=== PATIENT | male | born 1930 | race Caucasian/White ===

== ENCOUNTER 2019-09-29 16:22 | Inpatient (IN) | payer MEDICARE, MEDICAID ==
[~2019-09-29] VITALS: Ht 157.5 cm; Wt 79.4 kg
[2019-09-29 16:59] VITALS: BP 120/55
[2019-09-29] MEDS ORDERED: IV NS 1000 ML 1,000 ML IV PRN (18:52)
[2019-09-29] MEDS ORDERED: Z GUARD REMEDY PASTE 57 GM TUBE TOP PRN (19:00)
[2019-09-29] MEDS ORDERED: CEFTRIAXONE 2 G in IV DEXTROSE 5% 100 ML IV SCH (19:00)
[2019-09-29] MEDS ORDERED: MAGNESIUM HYDROXIDE 30 ML LIQUID UDC PO PRN (19:00)
[2019-09-29] MEDS ORDERED: ONDANSETRON 4 MG/2 ML VIAL IV PRN (19:00)
[2019-09-29] MEDS ORDERED: ZOLPIDEM 5 MG TABLET PO PRN (19:00)
[2019-09-29] MEDS ORDERED: ACETAMINOPHEN 325 MG TABLET PO PRN (19:00)
[2019-09-29] MEDS ORDERED: HYDROCODONE/APAP 5-325MG TABLET PO PRN (19:00)
[2019-09-29 20:00] VITALS: BP 126/54
[2019-09-29] MEDS ORDERED: VANCOMYCIN IV 1,000 MG in IV DEXTROSE 5% 250 ML IV ONE (21:00)
[2019-09-29] MEDS ORDERED: ATORVASTATIN 40 MG TABLET PO SCH (21:00)
[2019-09-29] MEDS: CEFTRIAXONE 1 G in IV DEXTROSE 5% 50 ML IV SCH (21:28)
[2019-09-29 23:11] LABS: BASOPHILS # (AUTO) 0.1 K/uL (0.0-8.0); BASOPHILS % (AUTO) 0.6 % (0.0-2.0); EOSINOPHILS # (AUTO) 0.2 K/uL (0.0-0.7); EOSINOPHILS % (AUTO) 1.3 % (0.0-7.0); HEMATOCRIT 38.4 % (36.7-47.1); HEMOGLOBIN 12.3 g/dL (12.5-16.3); LYMPHOCYTES # (AUTO) 1.3 K/uL (20.0-40.0); LYMPHOCYTES % (AUTO) 9.1 % (20.5-51.5); MEAN CORPUSCULAR HEMOGLOBIN 29.5 uug (23.8-33.4); MEAN CORPUSCULAR HGB CONC 32 g/dL (32.5-36.3); MEAN CORPUSCULAR VOLUME 91.7 fL (73.0-96.2); MONOCYTES # (AUTO) 0.8 K/uL (2.0-10.0); MONOCYTES % (AUTO) 5.2 % (0.0-11.0); NEUTROPHILS # (AUTO) 12.1 K/uL (1.8-8.9); NEUTROPHILS % (AUTO) 83.8 % (38.5-71.5); PLATELET COUNT (AUTO) 289 K/uL (152-348); RED BLOOD CELL COUNT(AUTO) 4.19 MIL/uL (4.06-5.63); WHITE BLOOD COUNT (AUTO) 14.5 K/uL (3.6-10.2)
[2019-09-29 23:22] LABS: ALANINE AMINOTRANSFERASE 11 U/L (16-63); ALKALINE PHOSPHATASE 121 U/L (50-136); ASPARTATE AMINOTRANSFERASE 25 U/L (15-37); BILIRUBIN,TOTAL 0.3 mg/dL (0.2-1.0); CARBON DIOXIDE 25 mmol/L (21-32); CHLORIDE 98 mmol/L (98-107); GLUCOSE 145 mg/dL (74-106); MAGNESIUM 2.5 mg/dL (1.8-2.4); POTASSIUM 5.4 mmol/L (3.5-5.1); TOTAL PROTEIN, SERUM 6.9 g/dL (6.4-8.2)
[2019-09-29 23:24] LABS: CREATININE 7.8 mg/dL (0.6-1.3); UREA NITROGEN, BLOOD 99 mg/dL (7-18)
[2019-09-29 23:53] VITALS: BP 121/52
[2019-09-30 00:02] VITALS: BP 94/40
[2019-09-30 04:00] VITALS: BP 137/58
--- NOTE | 2019-09-30 06:39 | NUR ---
Pt slept well through the night with no issues. All admission process continued from AM nurse and finished. All meds reconciled by MD. Pt kept on O2 2LPM, normal. V pacing on tele, rate at 65 - 75. No signs of active distress. Awaiting for dialysis orders, but family is aware that patient is stable at this time and MD will make his rounds today to assess patient. Had 2 soft BM during shift. Noted with anuria. IV fluids running as ordered, but patient accidentally pulled out IV just now. Will attempt to start a new one. Will endorse accordingly to AM nurse.
[2019-09-30] MEDS: PANTOPRAZOLE SODIUM 40 MG TABLET.DR PO SCH (06:59)
[2019-09-30 07:11] LABS: BASOPHILS # (AUTO) 0.1 K/uL (0.0-8.0); EOSINOPHILS # (AUTO) 0.3 K/uL (0.0-0.7); EOSINOPHILS % (AUTO) 1.9 % (0.0-7.0); HEMATOCRIT 36.9 % (36.7-47.1); LYMPHOCYTES # (AUTO) 1.2 K/uL (20.0-40.0); LYMPHOCYTES % (AUTO) 8.7 % (20.5-51.5); MEAN CORPUSCULAR HEMOGLOBIN 29.8 uug (23.8-33.4); MEAN CORPUSCULAR HGB CONC 33 g/dL (32.5-36.3); MEAN CORPUSCULAR VOLUME 91.4 fL (73.0-96.2); MONOCYTES # (AUTO) 0.7 K/uL (2.0-10.0); MONOCYTES % (AUTO) 5.3 % (0.0-11.0); NEUTROPHILS # (AUTO) 11.1 K/uL (1.8-8.9); NEUTROPHILS % (AUTO) 83.1 % (38.5-71.5); PLATELET COUNT (AUTO) 294 K/uL (152-348); RED BLOOD CELL COUNT(AUTO) 4.04 MIL/uL (4.06-5.63); WHITE BLOOD COUNT (AUTO) 13.3 K/uL (3.6-10.2)
--- NOTE | 2019-09-30 07:15 | NUR ---
RECEIVED PATIENT IN BED AWAKE VERBALLY RESPOND BUT HE IS MIXED AND DOES NOT SEEM TO KNOW WHAT HE WANTS FOR EXAMPLE WANTS HEAD UP AND SOON I PUT IT UP WANTS IT DOWN AGAIN ON O2 AT 2L/M WITH NO SHORTNESS OF BREATH AT THIS TIME HL INTACT TO HIS RIGHT HAND AZAR CATH IS GIL\TACT TO HIS RIGHT UPPER CHEST MADE COMFORTABLE WILL CONTINUE TO OBSERVE AND PROVIDE SAFE AND THERAPEUTIC ENVIRONMENT AT ALL TIMES
[2019-09-30 07:31] LABS: CARBON DIOXIDE 28 mmol/L (21-32); CHLORIDE 95 mmol/L (98-107); CHOLESTEROL 88 mg/dL (<200); GLUCOSE 86 mg/dL (74-106); HDL CHOLESTEROL 40 mg/dL (40-60); MAGNESIUM 2.7 mg/dL (1.8-2.4); PHOSPHOROUS 5.1 mg/dL (2.5-4.9); POTASSIUM 5.4 mmol/L (3.5-5.1); TRIGLYCERIDES 66 MG/DL (30-150)
[2019-09-30 07:50] LABS: UREA NITROGEN, BLOOD 110 mg/dL (7-18)
[2019-09-30 07:51] LABS: CREATININE 8.5 mg/dL (0.6-1.3)
[2019-09-30 08:20] LABS: THYROID STIMULATING HORMONE 0.791 mIU/mL (0.358-3.740)
[2019-09-30] MEDS: MEMANTINE HCL 10 MG TABLET PO SCH ×2 (08:50→20:44)
[2019-09-30] MEDS: CARVEDILOL 25 MG TABLET PO SCH (08:50)
[2019-09-30] MEDS: ASPIRIN 81 MG TAB.CHEW PO SCH (08:50)
[2019-09-30] MEDS: BICALUTAMIDE 50 MG TABLET PO SCH (08:55)
[2019-09-30] MEDS ORDERED: CARVEDILOL 12.5 MG TABLET PO SCH (09:00)
[2019-09-30 11:11] VITALS: BP 93/46
--- NOTE | 2019-09-30 12:45 | NUR ---
DIALYSIS COMPLETED ORDERED AND 800 ML REPORTED REMOVED.PATIENT TOLERATED PROCEDURE WELL
--- NOTE | 2019-09-30 12:52 | NUR ---
PATIENT SEEN AND EXAMINED BY DR MEJÍA WITH NEW ORDERS AND NOTED.
[2019-09-30 15:20] VITALS: BP 114/45
[2019-09-30 16:15] LABS: ABG BASE EXCESS 2.1 mmol/L; ABG HCO3 30.1 mmol/L; ABG PCO2 63.6 mmHg (35.0-45.0); ABG PH 7.293 (7.350-7.450); ABG PO2 73.3 mmHg (75.0-100.0); ABG SITE LEFT RADIAL; ABG TOTAL HEMOGLOBIN 12.3 G/dL (13.5-18.0); COHb 1.6 % (0.5-1.5); O2Hb 91.3 % (94.0-97.0); VENT MODE Nasal Cannula
--- NOTE | 2019-09-30 17:03 | NUR ---
RECEIVED ABNORMAL ABG RESULTS FROM THE RESPIRATORY CALLED DR OBANDO OFFICE TO RELAY THEM TO HIM SPOKE WITH MAN[facility] ANSWERING SERVICE STATED NOT IS NOT AVAILABLE AT THE MOMENT WILL PAGE HIM TO CALL ME BACK PATIENT REMAINS ON O2 WITH NO SHORTNESS OF BREATH AT THIS TIME.ALL NEEDS ANTICIPATED AND SATISFIED.
--- NOTE | 2019-09-30 17:34 | NUR ---
DR MEJÍA RETURNED CALL AND STATED TO TITRATE O2 TO MAINTAIN SATURATION AT 88-92 PERCENT AND NOTED.HE IS ON O2 AT 2.5 LITERS SO O2 SET AT 1.5 AT THIS TIME AND WILL RECHECK SAT.
--- NOTE | 2019-09-30 17:35 | NUR ---
PATIENT IS AWAKE ALERT NO DISTRESS AT THIS TIME COOPERATIVE EATING DINNER BEING SPOON FED BY THE ELECTION JUDGE.
[2019-09-30 20:01] VITALS: BP 114/45
[2019-09-30] MEDS: CEFTRIAXONE 1 G in IV DEXTROSE 5% 50 ML IV SCH (20:44)
[2019-09-30] MEDS: Z GUARD REMEDY PASTE 57 GM TUBE TOP SCH (21:11)
[2019-10-01 06:21] LABS: BASOPHILS # (AUTO) 0.1 K/uL (0.0-8.0); BASOPHILS % (AUTO) 0.9 % (0.0-2.0); EOSINOPHILS # (AUTO) 0.1 K/uL (0.0-0.7); EOSINOPHILS % (AUTO) 1.2 % (0.0-7.0); HEMATOCRIT 35.1 % (36.7-47.1); HEMOGLOBIN 11.2 g/dL (12.5-16.3); LYMPHOCYTES # (AUTO) 0.9 K/uL (20.0-40.0); LYMPHOCYTES % (AUTO) 7.9 % (20.5-51.5); MEAN CORPUSCULAR HEMOGLOBIN 29.4 uug (23.8-33.4); MEAN CORPUSCULAR HGB CONC 32 g/dL (32.5-36.3); MEAN CORPUSCULAR VOLUME 92.5 fL (73.0-96.2); MONOCYTES # (AUTO) 0.7 K/uL (2.0-10.0); MONOCYTES % (AUTO) 5.9 % (0.0-11.0); NEUTROPHILS # (AUTO) 9.5 K/uL (1.8-8.9); NEUTROPHILS % (AUTO) 84.1 % (38.5-71.5); PLATELET COUNT (AUTO) 296 K/uL (152-348); RED BLOOD CELL COUNT(AUTO) 3.79 MIL/uL (4.06-5.63); WHITE BLOOD COUNT (AUTO) 11.3 K/uL (3.6-10.2)
[2019-10-01] MEDS: PANTOPRAZOLE SODIUM 40 MG TABLET.DR PO SCH (06:26)
[2019-10-01 06:54] LABS: ALANINE AMINOTRANSFERASE 14 U/L (16-63); ALKALINE PHOSPHATASE 120 U/L (50-136); ASPARTATE AMINOTRANSFERASE 13 U/L (15-37); BILIRUBIN,TOTAL 0.3 mg/dL (0.2-1.0); CARBON DIOXIDE 32 mmol/L (21-32); CHLORIDE 104 mmol/L (98-107); CREATININE 6.3 mg/dL (0.6-1.3); GLUCOSE 83 mg/dL (74-106); MAGNESIUM 2.4 mg/dL (1.8-2.4); PHOSPHOROUS 3.7 mg/dL (2.5-4.9); POTASSIUM 4.7 mmol/L (3.5-5.1); TOTAL PROTEIN, SERUM 6.3 g/dL (6.4-8.2); UREA NITROGEN, BLOOD 65 mg/dL (7-18)
[2019-10-01 07:02] VITALS: BP 116/52
--- NOTE | 2019-10-01 07:30 | NUR ---
RECEIVED PATIENT IN BED, ASLEEP, EASY TO AWAKE, AOX2. COMPLAINS OF MILD SOB AND ON 1L NC SATURATES AT 94%. WILL TITRATE DOWN ORDERED. DENIES PAIN AT THIS TIME. RIGHT HAND IV INTACT AND HL. SAFETY AND FALL PREVENTION IN PLACE. CALL LIGHT IN REACH, BED LOW AND LOCKED. WILL CONTINUE TO MONITOR.
[2019-10-01] MEDS: Z GUARD REMEDY PASTE 57 GM TUBE TOP SCH ×2 (09:00→20:40)
[2019-10-01] MEDS: CARVEDILOL 25 MG TABLET PO SCH (09:00)
[2019-10-01] MEDS: BICALUTAMIDE 50 MG TABLET PO SCH (09:00)
[2019-10-01] MEDS: MEMANTINE HCL 10 MG TABLET PO SCH ×2 (10:12→20:40)
[2019-10-01] MEDS: ASPIRIN 81 MG TAB.CHEW PO SCH (10:12)
[2019-10-01 11:42] VITALS: BP 117/42
[2019-10-01 16:02] VITALS: BP 134/56
[2019-10-01] MEDS: CARVEDILOL 6.25 MG TABLET PO SCH (17:41)
[2019-10-01] MEDS: NEPRO (VANILLA) 237 ML CAN PO SCH (17:42)
--- NOTE | 2019-10-01 18:25 | NUR ---
PATIENT AOX2. DENIES PAIN OR SOB THROUGHOUT THE SHIFT. O2 TITRATED DOWN TO 0.5L NC. SATURATING AT 92% ORDERED. PATIENT HAD DIALISIS TODAY, 500CC OUT. TURNING AND REPOSITIONING PATIENT Q2HRS AND OFFLOADING EXTREMITIES. SAFETY AND FALL PREVENTION IN PLACE. CALL LIGHT IN REACH, BED IN LOW AND LOCKED POSITION. WILL REPORT TO ONCOMING NURSE.
--- NOTE | 2019-10-01 19:30 | NUR ---
Received patient resting in bed, no signs of acute distress noted. A/Ox2. No complaints of pain or SOB. Patient is 95% on 0.5L NC. Heplock on the right hand is intact and patent. Safety measures initiated. Bed is low and locked, call light within reach, bed alarm on. Will continue to monitor.
[2019-10-01] MEDS: CEFTRIAXONE 1 G in IV DEXTROSE 5% 50 ML IV SCH (20:13)
[2019-10-01] MEDS ORDERED: ATORVASTATIN 40 MG TABLET PO SCH (21:00)
[2019-10-01 21:13] VITALS: BP 142/70
[2019-10-02 00:58] VITALS: BP 121/47
[2019-10-02 04:51] VITALS: BP 135/60
[2019-10-02] MEDS: PANTOPRAZOLE SODIUM 40 MG TABLET.DR PO SCH (06:26)
[2019-10-02 06:41] LABS: BASOPHILS # (AUTO) 0.1 K/uL (0.0-8.0); BASOPHILS % (AUTO) 0.7 % (0.0-2.0); EOSINOPHILS # (AUTO) 0.2 K/uL (0.0-0.7); EOSINOPHILS % (AUTO) 1.4 % (0.0-7.0); HEMATOCRIT 36.7 % (36.7-47.1); HEMOGLOBIN 11.8 g/dL (12.5-16.3); LYMPHOCYTES # (AUTO) 1.1 K/uL (20.0-40.0); LYMPHOCYTES % (AUTO) 9.5 % (20.5-51.5); MEAN CORPUSCULAR HEMOGLOBIN 29.8 uug (23.8-33.4); MEAN CORPUSCULAR HGB CONC 32 g/dL (32.5-36.3); MEAN CORPUSCULAR VOLUME 92.9 fL (73.0-96.2); MONOCYTES # (AUTO) 0.9 K/uL (2.0-10.0); MONOCYTES % (AUTO) 7.2 % (0.0-11.0); NEUTROPHILS # (AUTO) 9.6 K/uL (1.8-8.9); NEUTROPHILS % (AUTO) 81.2 % (38.5-71.5); PLATELET COUNT (AUTO) 258 K/uL (152-348); RED BLOOD CELL COUNT(AUTO) 3.95 MIL/uL (4.06-5.63); WHITE BLOOD COUNT (AUTO) 11.8 K/uL (3.6-10.2)
[2019-10-02 06:50] LABS: CARBON DIOXIDE 30 mmol/L (21-32); CHLORIDE 106 mmol/L (98-107); CREATININE 5.1 mg/dL (0.6-1.3); GLUCOSE 102 mg/dL (74-106); MAGNESIUM 2.4 mg/dL (1.8-2.4); PHOSPHOROUS 2.8 mg/dL (2.5-4.9); POTASSIUM 5.1 mmol/L (3.5-5.1); UREA NITROGEN, BLOOD 45 mg/dL (7-18)
--- NOTE | 2019-10-02 07:30 | NUR ---
Sleeping, comfortable. O2 at 0.5L/NC
[2019-10-02] MEDS ORDERED: CARVEDILOL 6.25 MG TABLET PO SCH (09:00)
[2019-10-02] MEDS ORDERED: CARVEDILOL 25 MG TABLET PO SCH (09:00)
[2019-10-02 09:07] LABS: HEPATITIS B SURFACE AB Reactive (.); HEPATITIS B SURFACE AG Negative (Negative)
[2019-10-02] MEDS: MEMANTINE HCL 10 MG TABLET PO SCH ×2 (09:14→20:20)
[2019-10-02] MEDS: ASPIRIN 81 MG TAB.CHEW PO SCH (09:14)
[2019-10-02] MEDS: BICALUTAMIDE 50 MG TABLET PO SCH (09:16)
[2019-10-02] MEDS: CARVEDILOL 6.25 MG TABLET PO SCH ×2 (09:17→18:00)
[2019-10-02] MEDS: Z GUARD REMEDY PASTE 57 GM TUBE TOP SCH ×2 (09:18→21:47)
[2019-10-02] MEDS: NEPRO (VANILLA) 237 ML CAN PO SCH ×3 (09:18→18:01)
--- NOTE | 2019-10-02 10:00 | NUR ---
Assisted out of bed by PT, not tolerated, SOB on exertion noted.
[2019-10-02] MEDS: METRONIDAZOLE 500 MG/NS 100ML 500 MG in PREMIXED 1 EACH IV SCH ×2 (10:34→21:42)
--- NOTE | 2019-10-02 11:00 | NUR ---
Attempts to get out of bed, disrobing. Repositioned on bed comfortably
[2019-10-02 11:44] VITALS: BP 120/54
--- NOTE | 2019-10-02 12:00 | NUR ---
Wean off O2; RA O2 sat 94%
[2019-10-02 13:01] LABS: ABG BASE EXCESS 2.1 mmol/L; ABG HCO3 28.8 mmol/L; ABG PCO2 54.1 mmHg (35.0-45.0); ABG PH 7.344 (7.350-7.450); ABG SITE RIGHT RADIAL; ABG TOTAL HEMOGLOBIN 12.4 G/dL (13.5-18.0); COHb 1.7 % (0.5-1.5); MetHb 0.1 % (0.0-1.5); VENT MODE Nasal Cannula
--- NOTE | 2019-10-02 14:00 | NUR ---
Disrobing, Noted BM. Incontinence care done. Repositioned in bed comfortably
[2019-10-02 16:14] VITALS: BP 138/68
--- NOTE | 2019-10-02 17:55 | NUR ---
Hemodialysis finished with 1L output. Dinner served
--- NOTE | 2019-10-02 19:30 | NUR ---
Received patient resting in bed, no signs of acute distress noted. No complaints of pain, patient now on room air saturating at 94-95% vitals WNL. Heplock on the right hand is intact and patent. Safety measures initiated. Bed is low and locked, call light within reach, bed alarm on. Will continue to monitor.
[2019-10-02 20:05] VITALS: BP 127/51
[2019-10-02] MEDS: CEFTRIAXONE 1 G in IV DEXTROSE 5% 50 ML IV SCH (20:20)
[2019-10-02] MEDS: ATORVASTATIN 10 MG TABLET PO SCH (20:20)
[2019-10-02] MEDS: ALBUTEROL SULFATE 1.25 MG/3 ML NEBU NEB PRN (21:21)
--- NOTE | 2019-10-02 22:59 | NUR ---
Family at bedside able to translate for patient, patient stated he felt a little short of breath. Was 95% on room air, suggested breathing treatment. Patient stated he feels a little better. Will continue to monitor.
[2019-10-03] VITALS: BP 119/41
[2019-10-03 04:15] VITALS: BP 125/42
[2019-10-03] MEDS: PANTOPRAZOLE SODIUM 40 MG TABLET.DR PO SCH (06:24)
[2019-10-03 06:36] LABS: CARBON DIOXIDE 31 mmol/L (21-32); CHLORIDE 107 mmol/L (98-107); CREATININE 4.5 mg/dL (0.6-1.3); GLUCOSE 108 mg/dL (74-106); MAGNESIUM 2.2 mg/dL (1.8-2.4); PHOSPHOROUS 2.3 mg/dL (2.5-4.9); POTASSIUM 4.9 mmol/L (3.5-5.1); UREA NITROGEN, BLOOD 39 mg/dL (7-18); URIC ACID 3.5 mg/dL (3.5-7.2)
[2019-10-03 06:54] LABS: BASOPHILS # (AUTO) 0.1 K/uL (0.0-8.0); BASOPHILS % (AUTO) 0.7 % (0.0-2.0); EOSINOPHILS # (AUTO) 0.2 K/uL (0.0-0.7); EOSINOPHILS % (AUTO) 1.7 % (0.0-7.0); HEMATOCRIT 35.8 % (36.7-47.1); HEMOGLOBIN 11.5 g/dL (12.5-16.3); LYMPHOCYTES % (AUTO) 9.4 % (20.5-51.5); MEAN CORPUSCULAR HGB CONC 32 g/dL (32.5-36.3); MEAN CORPUSCULAR VOLUME 93.4 fL (73.0-96.2); MONOCYTES # (AUTO) 0.8 K/uL (2.0-10.0); MONOCYTES % (AUTO) 6.9 % (0.0-11.0); NEUTROPHILS % (AUTO) 81.3 % (38.5-71.5); PLATELET COUNT (AUTO) 225 K/uL (152-348); RED BLOOD CELL COUNT(AUTO) 3.84 MIL/uL (4.06-5.63); WHITE BLOOD COUNT (AUTO) 11.1 K/uL (3.6-10.2)
--- NOTE | 2019-10-03 08:00 | NUR ---
RECEIVED PT RESTING IN BED. SON AT BEDSIDE. NO ACUTE DISTRESS OR SOB NOTED. PT ON RA AT THIS TIME WITH SATS OF 94%. PT ON TELE V PACED. PT IS [place] SPEAKING. BED LOCKED AND IN LOW POSITION. WILL CONTINUE TO MONITOR FOR SAFETY AND COMFORT.
[2019-10-03] MEDS: ASPIRIN 81 MG TAB.CHEW PO SCH (09:08)
[2019-10-03] MEDS: CARVEDILOL 6.25 MG TABLET PO SCH ×2 (09:10→18:10)
[2019-10-03] MEDS: BICALUTAMIDE 50 MG TABLET PO SCH (09:11)
[2019-10-03] MEDS: NEPRO (VANILLA) 237 ML CAN PO SCH ×3 (09:13→17:00)
[2019-10-03] MEDS: Z GUARD REMEDY PASTE 57 GM TUBE TOP SCH ×2 (09:14→20:46)
[2019-10-03] MEDS: METRONIDAZOLE 500 MG/NS 100ML 500 MG in PREMIXED 1 EACH IV SCH ×2 (09:53→20:45)
[2019-10-03 12:05] VITALS: BP 106/44
--- NOTE | 2019-10-03 13:05 | NUR ---
PT CONSUMED 25% OF HIS LUNCH. PT IS MED COMPLIANT. NO ACUTE DISTRESS OR SOB NOTED. PT ON TELE MONITORING V PACED. WILL CONTINUE TO MONITOR FOR SAFETY AND COMFORT.
[2019-10-03] MEDS: ALBUTEROL SULFATE 1.25 MG/3 ML NEBU NEB PRN ×2 (14:55→21:40)
[2019-10-03 16:00] VITALS: BP 141/98
[2019-10-03] MEDS ORDERED: NEUTRA PHOS PACKET PO ONE (17:00)
--- NOTE | 2019-10-03 17:30 | NUR ---
@ 1515 [facility] RESPONSE TEAM WAS CALLED. PT APPEARED CYANOTIC AND AGITATED ON SIDEWAYS FLAT POSITION IN BED. SATS OF 83 TO 84%. 160/71, 60, 20. PT PLACED ON SIMPLE MASK AT 6L/M WITH SATS OF 97%. PT PLACED ON HIGH FOWLERS POSITION FOR BETTER AIR EXCURSION. PT HAS TENDENCY TO FIND FLAT POSITION FOR COMFORT. AFTER INTERVENTION PT APPEARS MORE CALMED, WITH GOOD PINK COLOR. BS WITH BETTER AIR EXCURSION. CRX, ABG DONE. DR HARDEN AWARE OF CORRECTIONAL PROGRAM OFFICER INTERVENTION. DR HARDEN CONSULTED WITH PT IN [place] AND NO NEW ORDERS GIVEN. NO ACUTYE DISTRESS OR SOB NOTED AT THIS TIME. WILL CONTINUE TO MONITOR PT FOR SAFETY AND COMFORT.
--- NOTE | 2019-10-03 19:00 | NUR ---
PATIENT ALERT BUT FORGETFUL, NO SOB NO CHEST PAIN. PATIENT TELE MONITOR V PACING. PATIENT ON OXYGEN 1LPM OXYGEN SAT 97%, PATIENT NOTED WITH RESTLESS WHILE IN BED, COMPLAIN OF MILD PAIN, WILL MEDICATE FOR SLIGHT PAIN. CALL LIGHT WITHIN REACH. FREQUENT VISUAL CHECK DONE.
[2019-10-03] MEDS: CEFTRIAXONE 1 G in IV DEXTROSE 5% 50 ML IV SCH (20:08)
[2019-10-03 20:25] VITALS: BP 129/60
[2019-10-03] MEDS: ATORVASTATIN 10 MG TABLET PO SCH (20:45)
--- NOTE | 2019-10-03 21:00 | NUR ---
PATIENT ALERT, AND HAS NO COMPLAIN OF PAIN AT THIS TIME. PATIENT SOB ON EXERTION OR ACTIVITY, KEPT ON 1LPM OXYGEN SAT 97-100%, CONT TO MONITOR.
[2019-10-04] VITALS: BP 122/49
--- NOTE | 2019-10-04 02:50 | NUR ---
PATIENT AWAKE RESTLESS IN BED, TRIES TO CLIMB OUT OF BED, OXYGEN SAT WNL, PATIENT AWAKE COMPLAINING OF UNABLE TO GO BACK TO SLEEP, GIVEN SLEEPING MEDS WITH HELP AFTER 30 MINUTES, CONT TO MONITOR.
[2019-10-04 04:05] VITALS: BP 148/50
[2019-10-04] MEDS: PANTOPRAZOLE SODIUM 40 MG TABLET.DR PO SCH (06:39)
[2019-10-04 06:44] LABS: BASOPHILS # (AUTO) 0.1 K/uL (0.0-8.0); BASOPHILS % (AUTO) 1.2 % (0.0-2.0); EOSINOPHILS # (AUTO) 0.2 K/uL (0.0-0.7); EOSINOPHILS % (AUTO) 2.8 % (0.0-7.0); HEMOGLOBIN 11.4 g/dL (12.5-16.3); LYMPHOCYTES # (AUTO) 0.8 K/uL (20.0-40.0); LYMPHOCYTES % (AUTO) 12.3 % (20.5-51.5); MEAN CORPUSCULAR HEMOGLOBIN 29.8 uug (23.8-33.4); MEAN CORPUSCULAR HGB CONC 32 g/dL (32.5-36.3); MEAN CORPUSCULAR VOLUME 94.4 fL (73.0-96.2); MONOCYTES # (AUTO) 0.3 K/uL (2.0-10.0); MONOCYTES % (AUTO) 3.9 % (0.0-11.0); NEUTROPHILS # (AUTO) 5.2 K/uL (1.8-8.9); NEUTROPHILS % (AUTO) 79.8 % (38.5-71.5); PLATELET COUNT (AUTO) 185 K/uL (152-348); RED BLOOD CELL COUNT(AUTO) 3.81 MIL/uL (4.06-5.63); WHITE BLOOD COUNT (AUTO) 6.5 K/uL (3.6-10.2)
--- NOTE | 2019-10-04 06:44 | NUR ---
PATIENT ALERT AWAKE, NO SOB NO CHEST PAIN, R CHEST PERMA CATH INTACT, DRESSING INTACT. TELE MONITOR V PACING AT THIS TIME. PATIENT IS HAVING A DIALYSIS AT THIS TIME, TOLERATE WELL. CONT TO MONITOR.
[2019-10-04 06:56] LABS: CARBON DIOXIDE 32 mmol/L (21-32); CHLORIDE 110 mmol/L (98-107); CREATININE 4.9 mg/dL (0.6-1.3); GLUCOSE 102 mg/dL (74-106); MAGNESIUM 2.2 mg/dL (1.8-2.4); POTASSIUM 5.4 mmol/L (3.5-5.1); UREA NITROGEN, BLOOD 45 mg/dL (7-18)
--- NOTE | 2019-10-04 08:00 | NUR ---
RECEIVED PT RESTING IN BED. SON AT BEDSIDE. NO ACUTE DISTRESS OR SOB NOTED. PT ON 1L O2 AT THIS TIME WITH SATS OF 94%. PT ON TELE V PACED. PT IS [place] SPEAKING. BED LOCKED AND IN LOW POSITION. WILL CONTINUE TO MONITOR FOR SAFETY AND COMFORT.
[2019-10-04 08:12] LABS: ABG BASE EXCESS 1.8 mmol/L; ABG PH 7.289 (7.350-7.450); ABG PO2 163.2 mmHg (75.0-100.0); ABG SITE LEFT RADIAL; ABG TOTAL HEMOGLOBIN 13.2 G/dL (13.5-18.0); COHb 1.8 % (0.5-1.5); O2Hb 97.5 % (94.0-97.0)
[2019-10-04] MEDS: NEPRO (VANILLA) 237 ML CAN PO SCH ×3 (09:00→17:27)
[2019-10-04] MEDS: Z GUARD REMEDY PASTE 57 GM TUBE TOP SCH ×2 (09:00→21:18)
[2019-10-04] MEDS: CARVEDILOL 6.25 MG TABLET PO SCH ×2 (09:44→17:48)
[2019-10-04] MEDS: ASPIRIN 81 MG TAB.CHEW PO SCH (09:44)
[2019-10-04] MEDS: BICALUTAMIDE 50 MG TABLET PO SCH (09:46)
[2019-10-04] MEDS: METRONIDAZOLE 500 MG/NS 100ML 500 MG in PREMIXED 1 EACH IV SCH ×2 (09:46→21:17)
[2019-10-04 11:46] VITALS: BP 111/50
[2019-10-04 16:00] VITALS: BP 135/66
--- NOTE | 2019-10-04 18:00 | NUR ---
PATIENT RESTING IN BED. NO SOB NO CHEST PAIN, NO ACUTE DISTRESS NOTED. PT ON O2 @ 1L/M NC WITH SATS OF 95%. TELE MONITOR V PACING AT THIS TIME. WILL GIVE REPORT ACCORDINGLY.
[2019-10-04] MEDS: CEFTRIAXONE 1 G in IV DEXTROSE 5% 50 ML IV SCH (19:33)
--- NOTE | 2019-10-04 20:00 | NUR ---
PATIENT RECEIVED INTO CARE LAYING IN BED SLEEPING, RESTING COMFORTABLY. PATIENT HAS NO SIGNS/SYMPTOMS OF ACUTE DISTRESS OR DISCOMFORT NOTED/OBSERVED BY NURSE. PATIENT IS RECEIVING 1L OXYGEN VIA NC AND HAS AN O2 SATURATION OF 96% WITH ALL VS WNL. IV SITE ON RIGHT FOREARM IS PATENT AND INTACT. WILL CONTINUE TO MONITOR FLUID INTAKE AND ENFORCE ANY RESTRICTIONS IN PLACE. SAFETY AND FALL PRECAUTION MEASURES ARE IN PLACE. CALL LIGHT AND PERSONAL ITEMS ARE WITHIN REACH. WILL CONTINUE TO MONITOR AND ASSESS.
[2019-10-04 20:26] VITALS: BP 127/47
[2019-10-04] MEDS: ATORVASTATIN 10 MG TABLET PO SCH (21:17)
--- NOTE | 2019-10-04 22:45 | NUR ---
Spoke with son who provided patient's usual pharmacy: [phone]. Son also advised nurse he would bring father's prescribed Namenda for pharmacy to review.
[2019-10-05 00:24] VITALS: BP 114/48
--- NOTE | 2019-10-05 05:58 | NUR ---
Patient slept throughout night comfortably with no complaints of pain or discomfort verbalized and no signs/symptoms of acute distress or discomfort noted/observed by nurse. VS have been WNL throughout night, IV site remains patent/intact, and patient is stable. All prescribed IV antibiotics and PO medications provided as ordered and tolerated well, with no adverse side effects verbalized by patient or noted/observed by nurse. All nursing needs were met promptly and patient is warm, dry, and comfortable. Call light and personal items are remain within reach at all times. All safety, fall, and aspiration precautions remain in place.
[2019-10-05] MEDS: PANTOPRAZOLE SODIUM 40 MG TABLET.DR PO SCH (06:11)
[2019-10-05 06:17] VITALS: BP 107/43
[2019-10-05 06:35] LABS: BASOPHILS # (AUTO) 0.1 K/uL (0.0-8.0); BASOPHILS % (AUTO) 1.3 % (0.0-2.0); EOSINOPHILS # (AUTO) 0.3 K/uL (0.0-0.7); EOSINOPHILS % (AUTO) 3.7 % (0.0-7.0); HEMATOCRIT 35.6 % (36.7-47.1); HEMOGLOBIN 11.3 g/dL (12.5-16.3); LYMPHOCYTES # (AUTO) 1.1 K/uL (20.0-40.0); LYMPHOCYTES % (AUTO) 12.6 % (20.5-51.5); MEAN CORPUSCULAR HEMOGLOBIN 30.3 uug (23.8-33.4); MEAN CORPUSCULAR HGB CONC 32 g/dL (32.5-36.3); MEAN CORPUSCULAR VOLUME 94.8 fL (73.0-96.2); MONOCYTES # (AUTO) 0.7 K/uL (2.0-10.0); MONOCYTES % (AUTO) 7.5 % (0.0-11.0); NEUTROPHILS # (AUTO) 6.6 K/uL (1.8-8.9); NEUTROPHILS % (AUTO) 74.9 % (38.5-71.5); PLATELET COUNT (AUTO) 184 K/uL (152-348); RED BLOOD CELL COUNT(AUTO) 3.75 MIL/uL (4.06-5.63); WHITE BLOOD COUNT (AUTO) 8.8 K/uL (3.6-10.2)
[2019-10-05 06:50] LABS: ALANINE AMINOTRANSFERASE 17 U/L (16-63); ALKALINE PHOSPHATASE 132 U/L (50-136); ASPARTATE AMINOTRANSFERASE 16 U/L (15-37); BILIRUBIN,TOTAL 0.4 mg/dL (0.2-1.0); CARBON DIOXIDE 32 mmol/L (21-32); CHLORIDE 110 mmol/L (98-107); CREATININE 5.2 mg/dL (0.6-1.3); GLUCOSE 86 mg/dL (74-106); MAGNESIUM 2.4 mg/dL (1.8-2.4); PHOSPHOROUS 4.6 mg/dL (2.5-4.9); POTASSIUM 5.2 mmol/L (3.5-5.1); TOTAL PROTEIN, SERUM 6.5 g/dL (6.4-8.2); UREA NITROGEN, BLOOD 48 mg/dL (7-18)
--- NOTE | 2019-10-05 07:00 | NUR ---
RECEIVED PT RESTING IN BED. NO ACUTE DISTRESS OR SOB NOTED.. PT ON TELE V PACED. PT IS [place] SPEAKING. BED LOCKED AND IN LOW POSITION. WILL CONTINUE TO MONITOR FOR SAFETY AND COMFORT.
[2019-10-05] MEDS: ASPIRIN 81 MG TAB.CHEW PO SCH (08:09)
[2019-10-05] MEDS: BICALUTAMIDE 50 MG TABLET PO SCH (08:10)
[2019-10-05] MEDS: CARVEDILOL 6.25 MG TABLET PO SCH ×2 (08:10→17:08)
[2019-10-05] MEDS: METRONIDAZOLE 500 MG/NS 100ML 500 MG in PREMIXED 1 EACH IV SCH ×2 (08:15→20:12)
[2019-10-05] MEDS: NEPRO (VANILLA) 237 ML CAN PO SCH ×3 (08:22→16:02)
[2019-10-05] MEDS: Z GUARD REMEDY PASTE 57 GM TUBE TOP SCH ×2 (08:22→20:01)
[2019-10-05 11:45] VITALS: BP 124/34
[2019-10-05 16:05] VITALS: BP 113/49
[2019-10-05] MEDS: CEFTRIAXONE 1 G in IV DEXTROSE 5% 50 ML IV SCH (19:01)
[2019-10-05 19:56] VITALS: BP 132/60
[2019-10-05] MEDS: ATORVASTATIN 10 MG TABLET PO SCH (20:01)
[2019-10-06 00:20] VITALS: BP 135/56
[2019-10-06 04:57] VITALS: BP 106/87
[2019-10-06] MEDS: PANTOPRAZOLE SODIUM 40 MG TABLET.DR PO SCH (06:15)
--- NOTE | 2019-10-06 07:30 | NUR ---
Patient calm and comfortable resting in bed with no signs of distress; patient will continue to be monitored.
[2019-10-06] MEDS: CARVEDILOL 6.25 MG TABLET PO SCH ×2 (08:50→18:00)
[2019-10-06] MEDS: ASPIRIN 81 MG TAB.CHEW PO SCH (08:50)
[2019-10-06] MEDS: METRONIDAZOLE 500 MG/NS 100ML 500 MG in PREMIXED 1 EACH IV SCH (08:51)
[2019-10-06] MEDS: BICALUTAMIDE 50 MG TABLET PO SCH (08:53)
[2019-10-06] MEDS: Z GUARD REMEDY PASTE 57 GM TUBE TOP SCH (08:54)
[2019-10-06] MEDS: NEPRO (VANILLA) 237 ML CAN PO SCH ×3 (08:54→17:00)
[2019-10-06 11:30] VITALS: BP 115/45
[2019-10-06] MEDS ORDERED: MEMANTINE HCL 10 MG TABLET PO SCH ×2 (12:22→12:37)
[2019-10-06 15:37] VITALS: BP 108/42
--- NOTE | 2019-10-06 20:10 | NUR ---
Patient left via ambulance in stable condition and no signs of distress; patient with stable vital signs ;Patient with no signs of distress; ambulance given discharge instructions.
== END 2019-10-06 20:41 | disposition home health service (06) | DRG 871 ==
LOC: TELE3 16:31 → MEDSURG3 10-06 08:15
PROVIDERS: ATTEND Internal Medicine
PROC: 5A1D70Z Performance of Urinary Filtration, Intermittent, Less than 6 Hours Per Day (ICD-10-PCS; principal; 2019-09-30)
DX: A41.9 Sepsis, unspecified organism (principal); J69.0 Pneumonitis due to inhalation of food and vomit; G92 Toxic encephalopathy; N18.6 End stage renal disease; I50.23 Acute on chronic systolic (congestive) heart failure; J96.01 Acute respiratory failure with hypoxia; J96.02 Acute respiratory failure with hypercapnia; I13.2 Hypertensive heart and chronic kidney disease with heart failure and with stage 5 chronic kidney disease, or end stage renal disease; D68.59 Other primary thrombophilia; C79.9 Secondary malignant neoplasm of unspecified site; E44.0 Moderate protein-calorie malnutrition; R65.20 Severe sepsis without septic shock; M85.88 Other specified disorders of bone density and structure, other site; E87.5 Hyperkalemia; Z99.2 Dependence on renal dialysis; E86.9 Volume depletion, unspecified; N40.0 Benign prostatic hyperplasia without lower urinary tract symptoms; E66.9 Obesity, unspecified; Z68.28 Body mass index [BMI] 28.0-28.9, adult; I27.20 Pulmonary hypertension, unspecified; C61 Malignant neoplasm of prostate; Z95.810 Presence of automatic (implantable) cardiac defibrillator; Z79.899 Other long term (current) drug therapy; Z74.09 Other reduced mobility; D63.1 Anemia in chronic kidney disease; E03.9 Hypothyroidism, unspecified; E78.5 Hyperlipidemia, unspecified; I25.5 Ischemic cardiomyopathy; I70.0 Atherosclerosis of aorta; I25.10 Atherosclerotic heart disease of native coronary artery without angina pectoris; Z88.0 Allergy status to penicillin; M19.90 Unspecified osteoarthritis, unspecified site; F03.90 Unspecified dementia, unspecified severity, without behavioral disturbance, psychotic disturbance, mood disturbance, and anxiety
CPT/HCPCS: 36415; 36600; 70030-TC; 71045; 83605; 83735; 84100; 84153; 84443; 84550; 85025; 86704; 86706; 87040; 87340; 87400; 90937; 93005; 93307; 94640; 94664; A4663; G0378; J0696; J3370; J3490; J7040; J7060